=== PATIENT | female | born 1965 | race Caucasian/White ===

== ENCOUNTER → 2017-06-27 | Emergency (ER) | payer OTHER ==
[~2017-06-27] VITALS: Ht 165.1 cm; Wt 109.8 kg
[~2017-06-27] MED LIST: ANALGESIC CREME85 GM TOP; IBUPROFEN200 MG PO; IBUPROFEN800 MG PO; LISINOPRIL-HCT1 EAC1 PO; MELOXICAM15 MG PO; NAPROXEN500 MG PO; NORCO 5-325 TA1 EACH PO; ULTRAM50 MG PO
== END ==
LOC: ED 20:58
DX: A08.4 Viral intestinal infection, unspecified (principal); I10 Essential (primary) hypertension; Z87.891 Personal history of nicotine dependence
CPT/HCPCS: 80053; 85025; 96374; 96375; 99283; J1200; J1885; J2405; J2765; J7030

== ENCOUNTER 2017-11-03 14:04 | Emergency (ER) | payer BC ==
[~2017-11-03] VITALS: Ht 165.1 cm; Wt 108.9 kg
[2017-11-03] MEDS ORDERED: MULTI VITAMIN1 EACH PO (14:14)
[2017-11-03] MEDS ORDERED: ONDANSETRON ODT8 MG PO (16:17)
== END 2017-11-03 18:25 | disposition home or self-care (01) ==
LOC: ED 14:04
DX: K29.70 Gastritis, unspecified, without bleeding (principal); I10 Essential (primary) hypertension; Z87.891 Personal history of nicotine dependence; Z88.5 Allergy status to narcotic agent
CPT/HCPCS: 76705; 80053; 82150; 83690; 85025; 96361; 96374; 96375; 96376; 99284; J1170; J2310; J2405; J7030

== ENCOUNTER 2020-10-22 07:20 | Day surgery (SDC) | payer OTHER ==
[~2020-10-22] VITALS: Ht 165.1 cm; Wt 109.1 kg
[~2020-10-22 07:20] MED LIST changes: +MULTI VITAMIN1 EACH PO; +ONDANSETRON ODT8 MG PO
[2020-10-22] MEDS ORDERED: ESCITALOPRAM OX10 MG PO (07:32)
[2020-10-22] MEDS ORDERED: PROPRANOLOL HCL10 MG PO (07:33)
[2020-10-22] MEDS ORDERED: PERPHENAZINE4 MG PO (07:33)
--- NOTE | 2020-10-22 10:06 | NUR ---
10/22/20 Jose6 Senait Leiva 5123-PATIENT ARRIVED TO PACU ON 6L MASK NONAROUSABLE RR EVEN SHALLOW BREATHING. SR. INCISION SITE TO HEAD CDI NO DRESSING IN PLACE. 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 1004-PATIENT AROUSES TO VERBAL STIMULI OPENING EYES NODS HEAD YES WHEN ASKED IF OK. CLOSES EYES AND FALLS BACK ASLEEP. 6L MASK RR EVEN. ENCOURAGED DEEP BREATHING.
--- NOTE | 2020-10-22 11:28 | NUR ---
1055: PATIENT BACK IN DAY SURGERY ROOM FROM PACU. DENIES PAIN. PATIENT DROWSY. VS CHECKED. SCALP INCISION WNL. NO DRESSING. ICE PACK TO SCALP. IV SITE WNL. SCDs ON. ICE WATER PLACED AT BEDSIDE. PATIENT REQUESTING TO SLEEP. LIGHTS TURNED OFF PER REQUEST. CALL LIGHT WITHIN REACH.
[2020-10-22] MEDS ORDERED: HYDROCODON-ACE1 EA10 PO (11:36)
--- NOTE | 2020-10-22 12:09 | NUR ---
1145: PATIENT AWAKENED FOR VS CHECKED. DENIES PAIN. CONTINUES TO BE DROWSY AND WANTS TO CONTINUE SLEEPING. SCALP INCISION WNL. ICE PACK TO SCALP. IV SITE WNL. CALL LIGHT WITHIN REACH.
--- NOTE | 2020-10-22 12:30 | NUR ---
PATIENT ASSISTED OOB AND TO BATHROOM. GAIT STEADY. VOID WITHOUT DIFFICULTY. GAIT STEADY BACK TO ROOM. SITTING ON SIDE OF BED. PATIENT GIVEN JELLO TO EAT. CALL LIGHT WITHIN REACH.
--- NOTE | 2020-10-22 12:56 | NUR ---
1255-PATIENT AWAKENED FOR VITAL SIGNS DENIES PAIN OR NAUSEA. ATE ALL OF JELLO. PATIENT LAYING ON RIGHT SIDE REPORTS "I JUST WANNA SLEEP". CALL LIGHT WITHIN REACH
--- NOTE | 2020-10-22 13:30 | NUR ---
PT IS GIVEN VERBAL DC INSTRUCTIONS, SHE VERBALIZES UNDERSTANDING. IS CALLED TO COME GET THE PT. QUESTIONS ARE ASKED AND ANSWERED.
--- NOTE | 2020-10-22 13:53 | NUR ---
PAUL 1335: PT IS TAKEN TO PERSONAL VEHICLE VIA WC. SHE IS ABLE TO TRANSFER HERSELF FROM WC TO PERSONAL VEHICLE.
--- NOTE | 2020-10-23 07:16 | OR ---
[facility] [address], [place] [address] Signed DATE OF OPERATION: 10/22/2020 SURGEON: Sai Sterling MD PREOPERATIVE DIAGNOSIS: 2.5 cm subcutaneous parietal scalp mass. POSTOPERATIVE DIAGNOSIS: Epidermal cyst. PROCEDURE: Excision of epidermal, parietal scalp cyst. ESTIMATED BLOOD LOSS: None. INDICATIONS: Leonard is a 55-year-old female asked to see me for a subcutaneous mass over the top of her head almost to the occiput. It is in the midline. She said it has been there for years, but it continued to get larger. It is 2 cm maybe larger. She said it is quite painful and causing her headaches. She gone to her primary care provider. She was then asked to see me to have it removed. In the office, I explained to Leonard this would most likely be an epidermal cyst. I explained to her the nature of the surgery along with the risks including, but not limited to bleeding, infection, scarring, change in contour of the skin as well as recurrent cyst in the same or other locations. She had expressed understanding and wished to proceed. We always do these in the operating room under good lighting with cautery because the scalp bleeds though significantly. She understands it is extremely important to remove the entire cyst wall, otherwise they do recur. DESCRIPTION OF PROCEDURE: I met with Leonard in our preop area. We both identified the cyst and marked that appropriately. After this, she was taken in the operating room and placed in the supine position under general endotracheal tube anesthesia. She was given preoperative antibiotics along with subcutaneous heparin. SCDs were utilized. We used a pillow in a donut to help elevate her head and placed the bed in the reverse Trendelenburg position. She had been prepped and draped in the usual sterile fashion. We then injected local anesthetic around and underneath the lesion. An incision was made over the lesion front to back with our 15 blade knife. We carried this down and around the lesion very carefully with our needle-tip cautery. We used our hemostats to carefully get around Electronically Signed By: SAI STERLING MD 10/23/20 0716 PATIENT NAME: LEONARD RAUSCH OPERATIVE REPORT DATE OF : 69 REPORT #: [id number] PHYSICIAN: SAI STERLING MD PCP: CONCHIS GREENFIELD DO REPORT IS CONFIDENTIAL AND NOT TO BE RELEASED WITHOUT AUTHORIZATION [facility] [address], [place] [address] Signed the cyst wall and the entire cyst was removed en bloc. We then injected some additional local in the operative wound. The wound was irrigated and suctioned out until clear. We closed the dermis with interrupted 5-0 subcuticular Monocryl sutures. The skin edges were reapproximated with a running 5-0 fast absorbing plain gut suture. We left the wound open to air. After this, Leonard was awakened from her anesthesia, extubated in the OR, and taken to recovery room in stable condition. Sai Sterling MD ALB/MODL /[id number] cc: DO Sai Young MD Copies: CONCHIS GREENFIELD ANDREW L MD ~ Electronically Signed By: SAI STERLING MD 10/23/20 0716 PATIENT NAME: LEONARD RAUSCH MARY OPERATIVE REPORT DATE OF : 69 REPORT #: [id number] PHYSICIAN: SAI STERLING MD PCP: CONCHIS GREENFIELD DO REPORT IS CONFIDENTIAL AND NOT TO BE RELEASED WITHOUT AUTHORIZATION
--- NOTE | 2020-10-23 15:18 | PATH ---
[facility] [address] [place], [place] [address] Signed SPECIMEN(S): A SCALP SPECIMEN SOURCE: A. SCALP CLINICAL HISTORY: Excise subcutaneous scalp mass. FINAL PATHOLOGIC DIAGNOSIS: Epidermal scalp cyst, excision: - Pilar (trichilemmal) cyst. NAL:cml:C2NR MICROSCOPIC EXAMINATION: Histologic sections of all submitted blocks are examined by light microscopy. These findings, together with the gross examination, support the pathologic diagnosis. GROSS DESCRIPTION: The specimen, labeled "CT," and designated on the requisition "epidermal scalp cyst," is received in formalin and consists of white-del rio, firm mass (1.8 x 1.5 x 1.3 cm) is serially sectioned to reveal a white to brown-del rio and friable cut surface. Rn Gyn sections are submitted in cassette (A1). AC (under the direct supervision of a pathologist) The Gross Description was prepared using a voice recognition system. The report was reviewed for accuracy; however, sound-alike word errors, addition and/or deletions may occur. If there is any question about this report, please contact Client Services. PERFORMING LABORATORY: The technical component was performed by [email or web address], [address] [place] [id number] ([employer]: Beryl Gannon MD; CLIA# [id number]). Professional [email or web address] [address] [address] (CLIA# [id number]). Diagnostician: Martina Shen MD Pathologist Electronically Signed 10/23/2020 PATIENT NAME: LEONARD RAUSCH PATHOLOGY DATE OF : 69 REPORT #: [id number] PHYSICIAN: [facility] PCP: CONCHIS GREENFIELD DO REPORT IS CONFIDENTIAL AND NOT TO BE RELEASED WITHOUT AUTHORIZATION [address] [place] [address] Signed Copies: ~ PATIENT NAME: LEONARD RAUSCH PATHOLOGY DATE OF : 69 REPORT #: [id number] PHYSICIAN: [facility] PCP: CONCHIS GREENFIELD DO REPORT IS CONFIDENTIAL AND NOT TO BE RELEASED WITHOUT AUTHORIZATION
== END 2020-10-22 13:35 | disposition home or self-care (01) ==
LOC: DS 07:20
PROVIDERS: ATTEND Colon & Rectal Surgery
PROC: 0HB0XZZ Excision of Scalp Skin, External Approach (ICD-10-PCS; principal; 2020-10-22 08:30)
DX: L72.12 Trichodermal cyst (principal); E78.00 Pure hypercholesterolemia, unspecified; G47.33 Obstructive sleep apnea (adult) (pediatric); I10 Essential (primary) hypertension; E66.9 Obesity, unspecified; Z68.41 Body mass index [BMI] 40.0-44.9, adult
CPT/HCPCS: 00300; 88304; J0330; J0690; J1644; J2001; J2250; J2704; J7121

== ENCOUNTER 2021-04-27 15:32 | Emergency (ER) | payer OTHER ==
[~2021-04-27] VITALS: Ht 165.1 cm; Wt 108.9 kg
[~2021-04-27 15:32] MED LIST changes: +ESCITALOPRAM OX10 MG PO; +HYDROCODON-ACE1 EA10 PO; +PERPHENAZINE4 MG PO; +PROPRANOLOL HCL10 MG PO
[2021-04-27] MEDS ORDERED: PERCOCET 5-3251 EACH PO (17:21)
== END 2021-04-27 17:40 | disposition home or self-care (01) ==
LOC: ED 15:32
DX: S16.1XXA Strain of muscle, fascia and tendon at neck level, initial encounter (principal); S20.219A Contusion of unspecified front wall of thorax, initial encounter; V49.9XXA Car occupant (driver) (passenger) injured in unspecified traffic accident, initial encounter; I10 Essential (primary) hypertension; Z87.891 Personal history of nicotine dependence; Z88.5 Allergy status to narcotic agent; Z79.899 Other long term (current) drug therapy
CPT/HCPCS: 70450; 71260; 72125; 74177; 80053; 85025; 99285-25; Q9967

== ENCOUNTER 2021-07-09 15:54 | Inpatient (IN) | payer OTHER ==
[~2021-07-09] VITALS: Ht 165.1 cm; Wt 110.5 kg
[~2021-07-09 15:54] MED LIST changes: +PERCOCET 5-3251 EACH PO
[2021-07-09] MEDS ORDERED: MELOXICAM15 MG PO (16:45)
--- NOTE | 2021-07-09 21:20 | NUR ---
PT ARRIVED TO [facility] VIA STRETCHER AT 2032. SHE MOVED OVER TO BED SBA. PT IS ALERT AND ORIENTED RR IS EVEN AND UNLABORED. PT REPORTS PAIN AT 5/10 BUT STATES IT IS NOT REAL PAIN IT IS "HUNGER PAIN" AND IT WILL NOT STOP RUMBLING. PT ASKS IF THERE IS ANYTHING SHE CAN TAKE FOR IT. PT STATES SHE MORPHINE DID NOT HELP. ADVISED PT THAT IS ALL WE HAVE TO GIVE HER AND IT WILL NOT TAKE HER HUNGER AWAY. ADVISED PT THAT SHE HAS IV FLUIDS INFUSING WHICH WILL HELP KEEP HER HYDRATED. PT DENIES NAUSEA AT THIS TIME. VS TAKEN AND ENTERED. PT ORIENTED TO ROOM AND CALL LIGHT. IV IS INFUSING FINE AND CALL LIGHT IS CLOSE. PT DENIES FURTHER NEEDS. ORAL SWABS AND WARM BLANKET PROVIDED.
--- NOTE | 2021-07-09 22:58 | NUR ---
PT IS RESTING WITH EYES CLOSED, RR IS EVEN AND UNLABORED. IV IS INFUSING FINE AND CALL LIGHT IS CLOSE.
--- NOTE | 2021-07-10 00:20 | NUR ---
ASSISTED PT TO BATHROOM X1 SBA. PT VOIDED AND HAD "LIQUID BM". PT DID OWN PERICARE. BACK TO BED. MEDICATED WITH MORPHINE FOR C/O 6/10 ABD AND HEAD PAIN. PT FCO WELL. CALL LIGHT IN REACH. SIDE RAILS UP X2. PT DENIES FURTHER NEEDS.
--- NOTE | 2021-07-10 00:25 | NUR ---
Patient is trying to rest. Call light is in reach.
--- NOTE | 2021-07-10 01:24 | NUR ---
PT IS RESTING WITH EYES CLOSED, RR IS EVEN AND UNLABORED. CALL LIGHT IS CLOSE AND IV IS INFUSING FINE.
--- NOTE | 2021-07-10 02:26 | NUR ---
PT IS RESTING WITH EYES CLOSED, RR IS EVEN AND UNLABORED. CALL LIGHT IS CLOSE AND BED ALARM IS ON.
--- NOTE | 2021-07-10 03:23 | NUR ---
PT IS RESTING WITH EYES CLOSED, RR IS EVEN AND UNLABORED. CALL LIGHT IS CLOSE AND IV IS INFUSING FINE.
--- NOTE | 2021-07-10 05:07 | NUR ---
PT IS RESTING WITH EYES CLOSED, RR IS EVEN AND UNLABORED. CALL LIGHT IS CLOSE AND IV IS INFUSING FINE.
--- NOTE | 2021-07-10 08:03 | NUR ---
Patient resting in bed, eyes closed, respirations even and non labored. Personal supplies and call light within reach.
--- NOTE | 2021-07-10 10:34 | NUR ---
aPatient resting at this time, eyes closed, respirations even and non labored. Patient has no distress at this time. Call light within reach.
[2021-07-10] MEDS ORDERED: FLUPHENAZINE HCL1 MG PO (10:57)
--- NOTE | 2021-07-10 11:33 | NUR ---
MED REC COMPLETE
--- NOTE | 2021-07-10 13:09 | NUR ---
Patient awake, no ditress. Patient denies nausea and or pain at this time. IV site patent. Patient has no needs at this time.
--- NOTE | 2021-07-10 15:03 | NUR ---
VITALS AND I&OS CHARTED. PATIENT UP TO SHOWER WITH SBA. LINEN CHANGED.
--- NOTE | 2021-07-10 15:40 | NUR ---
Morphine 4mg ivp admin for reports of 5/10 abd pain.
--- NOTE | 2021-07-10 17:00 | NUR ---
Spoke with Mian. States she and spouse live in a 1 story home with 20 steps. There are handrails. She has not had issues getting in and out of home. She works for [employer] and drives. States she is active and denies need for any DME. She does use food stamps. Over income for [employer]. Denies other needs. works, but will assist her if she has any needs.
--- NOTE | 2021-07-10 17:29 | NUR ---
Patient resting in bed, eyes closed, respirations even and non labored. Patient has no needs at this time. Personal supplies and call light within reach.
--- NOTE | 2021-07-10 19:51 | NUR ---
BEDSIDE REPORT FROM ASHLEY RN, PT RESTING IN BED, ONLY REQUEST/COMPLAINT IS SHE WOULD LIKE THE IV SITE MOVED IT IS HARD FOR HER TO SLEEP WITH IV IN LEFT AC, IV SITE IS WNL, BRISK BLOOD RETURN NO REDNESS, DISCUSSED WITH PT THAT THIS RN WOULD ASSESS TO RELOCATE THIS SHIFT, THAT IT WILL BE A LITTLE LATER STAFF IS IN SHIFT CHANGE AT THIS TIME.
--- NOTE | 2021-07-10 20:23 | NUR ---
SBA TO RESTROOM, PT HAD A LIQUID BM IN UNDERWEAR. PROVIDED PANTS AND PT'S CLEAN UNDERWEAR. PT WILL CALL WHEN SHE IS DONE.
--- NOTE | 2021-07-10 20:50 | NUR ---
IN ROOM TO CHANGE PTS BEDDING FROM ACCIDENT. SHE IS NOW WEARING ATTENDS AND IS CLEANED UP. PT HAD LIQUID BMS, URINE AND EMESIS. PT DENIES FURTHER NEEDS. CALL LIGHT IS CLOSE.
--- NOTE | 2021-07-10 22:51 | NUR ---
PT REPORTS PAIN /10, SHE ALSO HAD UNMEASURED EMESIS, ZOFRAN 4MG IV PRN AND MORPHINE 4MG IV PRN. PT ALERT AND ORIENTED, COOPERATIVE WITH CARE. NO OTHER CONCERNS AT THIS TIME. SHE DID HAVE INCONT OF URINE AND STOOL IN BED SHE WAS ATTEMPTING TO GET OUT OF BED. SHE IS HAVING DIARRHEA. SHE REFUSED HER PO HS MEDS SHE FEELS SHE WILL NOT TOLERATE IN LIGHT OF RECENT EMESIS, SHE ALSO SAID THAT SHE HAD NASUEA THIS AM AFTER TAKING PO MEDS. NO OTHER CONCERNS AT THIS TIME
--- NOTE | 2021-07-11 00:59 | NUR ---
ROUNDING PT RESTING IN BED, EYES CLOSED RR EVEN AT 16 BPM, NO DISTRESS NOTED.
--- NOTE | 2021-07-11 04:47 | NUR ---
PT HAS SLEPT WELL OVER SHIFT, SHE HAS NEW IV PLACED TO RIGHT HAND, SHE IS PLEASED WITH THIS PLACED BY [employer]PERATIONS SPECIALIST ARIANA HOYOS. PT HAS REPORTED INCREASE PAIN WITH ORAL INTAKE, SHE REFUSED PO MEDICATIONS AT HS, SHE HAS HAD ONE EMESIS AND ONE DIARRHEA EPISODE THIS SHIFT, ZOFRAN AND MORPHINE ADMINISTERD ONCE PRN THIS SHIFT. PT WAS ADMINISTERED 1L BOLUS OVER 2 HOURS AND INCREASED IVF RATE PER ORDERS AT START OF SHIFT. SHE HAS BEEN COOPERATIVE WITH PLAN OF CARE.
--- NOTE | 2021-07-11 07:35 | NUR ---
Patient in bed resting, respirations even and non labored. Patient has no distress. Personal supplies and call light within reach.
--- NOTE | 2021-07-11 10:18 | NUR ---
Patient declined her morning po medications as she reports "they make me sick to my stomach".
--- NOTE | 2021-07-11 13:53 | NUR ---
Patient sitting up watching tv, no distress. Patient denies nasuea and or pain at this time. Patient fearful of drinking/eating as she reports she immediately got sick the last time she drank fluids. IV site remains patent. Patient denies needs. Personal supplies and call light within reach.
--- NOTE | 2021-07-11 18:37 | NUR ---
Patient voided 100ml since 1344. Dr. Espinal notified; LR bolus for 500ml ordered then cont IV fluids to be increased to 125ml/hr.
--- NOTE | 2021-07-11 20:05 | NUR ---
BEDSIDE REPORT FROM ASHLEY HOYOS, PT RESTING IN BED ALERT AND ORIENTED NO REPORTS OF PAIN OR NAUSEA, SHE AGREES TO TAKE HER SCHEDULED PO MEDICATIONS THIS EVENING. SHE REPORTS NO OTHER CONCERNS OR REQUESTS AT THIS TIME.
--- NOTE | 2021-07-11 22:09 | NUR ---
INTO PT ROOM, SHE IS SLEPPING ON RIGHT SIDE EYES CLOSED SNORING NOTED, PT ALERT TO STAFF AT BEDSIDE, SHE STARTLED AWAKE. SHE REPORTS NO PAIN OR NAUSEA. NO REQUESTS AT THIS TIME, V/S, I/O, HS ASSESSMENT COMPLETE
--- NOTE | 2021-07-12 01:43 | NUR ---
PT CALLED TO REPORT IV PUMP ALARMING. THIS RN INTO PT ROOM, NOTED IVF COMPLETE, NEW LITER OF LR SPIKED FOR ADMINISTRATION. PT RESTING IN BED ON HER LEFT SIDE. SHE HAS BEEN SLEEPING WELL OVER SHIFT.
--- NOTE | 2021-07-12 05:28 | NUR ---
PT HAS SLEPT WELL OVER SHIFT NO N/V/D. TOLERATING CLEAR LIQUID DIET WELL. INDEPENDENT TO BATHROOM VOIDING Q.S.
--- NOTE | 2021-07-12 05:37 | NUR ---
PT REPORTS SHE DID HAVE ONE EPISODE OF NAUSEA SHE REPORTS DO TO BEING ABLE TO TASTE THE IVF
--- NOTE | 2021-07-12 07:28 | NUR ---
Report received from Ute HOYOS. Pt resting in bed with eyes closed, even and unlabored RR. IVF infusing WNL. No needs identified at this time. Call light in reach, will continue plan of care.
--- NOTE | 2021-07-12 08:33 | NUR ---
Scheduled medications administered and assessment complete. Pt sitting at edge of bed finishing clear liquid tray. She reports no pain or nausea at this time. IVF infusing WNL. Void of 900ml.
--- NOTE | 2021-07-12 09:30 | NUR ---
New bag IVF hung infusing WNL. Pt resting in bed watching tv with no needs.
--- NOTE | 2021-07-12 13:45 | NUR ---
VSS and I/Os complete. Pt has no needs at this time, reports no pain or nausea. Calls appropriately.
--- NOTE | 2021-07-12 17:00 | NUR ---
Pt sitting up at edge of bed eating dinner and tolerating full liquid diet at this time. IV is saline locked. Pt on room air. She reports no pain, no nausea. Assessment complete. No further needs, call light in reach
--- NOTE | 2021-07-12 17:34 | NUR ---
VSS and I/Os complete. Pt tolerated dinner at this time.
--- NOTE | 2021-07-12 19:28 | NUR ---
BEDSIDE REPORT FROM SRINI HOYOS, PT RESTING IN BED ALERT AND ORIENTED, SHE REPORTS NO NEEDS AT THIS TIME. SHE IS SMILING AND SAID "I AM GOING TO GET MY DIET ADVANCED TOMORROW" SRINI HOYOS AND THIS RN AGREED, "YES THAT IS THE PLAN LONG NO NAUSEA OR INCREASED PAIN TONIGHT.
--- NOTE | 2021-07-12 21:54 | NUR ---
PT REPORTS FEELING OVER FULL FROM DINNER, ENCOURAGE PT TO AMBULATE IN HALLS IF SHE FEELS UP TO IT. SHE SAID "YES, THAT MIGHT BE GOOD", PT UP TO AMBUTLATE IN HALLS NOW. SHE REPORTS NO NAUSEA OR PAIN. NO OTHER REQUESTS AT THIS TIME.
--- NOTE | 2021-07-12 22:23 | NUR ---
PT AMBULATED MULTIPLE LAPS ON MED/SURG UNIT, TOLERATING ACTIVITY WELL, SHE REPORTS NO PAIN OR NAUSEA AT THIS TIME.
--- NOTE | 2021-07-12 23:38 | NUR ---
ROUNDING..PT UP AMBULATING IN HER ROOM. SHE SAID SHE IS HAVING TROUBLE FINDING THE TRAVEL CHANNEL ON TV. PT ASSISTED BY STAFF. PT HAS NO REPORT OF ABD PAIN OR NAUSEA AT THIS TIME.
--- NOTE | 2021-07-13 04:13 | NUR ---
PT RESTING IN BED RR REGULAR 16 BPM, NO DISTRESS NOTED.
--- NOTE | 2021-07-13 06:56 | NUR ---
MRI FORM FILLED OUT WITH PT, EDUCATION ON WHAT AND WHY THE DOCTOR ORDERED MRI. PT HAPPY TO HACVE MRI IN HOPES OF FINDING OUT WHAT MAY HAVE CAUSED HER PANCREATITIS. V/S, I/O COMPLETE. NO OTHER CONCERNS OR QUESTIONS THIS AM.
--- NOTE | 2021-07-13 07:15 | NUR ---
Report received from Ute HOYOS. Pt NPO for MRCP. Per report no pain or nausea throughout night. Call light in reach, will continue plan of care.
--- NOTE | 2021-07-13 08:25 | NUR ---
Assessment complete and scheduled medications administered. Pt prepared for MRCP. MRI checklist complete. Pt saline locked, on room air, HRR. She states no pain or needs and per report tolerated full liquids until NPO for procedure. VSS, A+O. Pt ambulatory in room independently, calls appropriately.
--- NOTE | 2021-07-13 09:10 | NUR ---
Pt taken to MRI
--- NOTE | 2021-07-13 10:34 | NUR ---
PT NOT IN RM-INFORMED BY M/S STAFF SHE IS AT IMAGING FOR MRI. WILL FOLLOW
--- NOTE | 2021-07-13 12:23 | NUR ---
Discharge teaching provided to patient regarding low fat diet, home care, outpatient followup, verbal and written information given. Pt verbalizes understanding and all questions answered. Marisel Pharmacist in room to discuss med list.
== END 2021-07-13 13:25 | disposition home or self-care (01) | DRG 440 ==
LOC: ED 15:54 → MS 15:56
PROVIDERS: ADMIT Internal Medicine; ATTEND Internal Medicine
DX: K85.00 Idiopathic acute pancreatitis without necrosis or infection (principal); Z20.822 Contact with and (suspected) exposure to COVID-19; F32.A Depression, unspecified; I10 Essential (primary) hypertension; E66.9 Obesity, unspecified; F41.9 Anxiety disorder, unspecified; E78.5 Hyperlipidemia, unspecified; Z68.38 Body mass index [BMI] 38.0-38.9, adult; Z90.89 Acquired absence of other organs; Z98.51 Tubal ligation status; Z79.899 Other long term (current) drug therapy; Z87.891 Personal history of nicotine dependence
CPT/HCPCS: 36415; 74183; 76705; 80048; 80053; 80061; 81001; 82310; 83690; 83735; 84703; 85025; 87088; 96374; 96375; 96376; 99285-25; A9577; C9113; C9803; J1650; J2270; J2405; J7121; U0003

== ENCOUNTER 2022-04-16 10:45 | Emergency (ER) | payer OTHER ==
[~2022-04-16] VITALS: Ht 165.1 cm; Wt 110.2 kg
[~2022-04-16 10:45] MED LIST changes: +FLUPHENAZINE HCL1 MG PO
[2022-04-16] MEDS ORDERED: DIVALPROEX SOD250 MG PO (13:59)
[2022-04-16] MEDS ORDERED: ZITHROMAX250 MG PO (16:00)
== END 2022-04-16 16:13 | disposition home or self-care (01) ==
LOC: ED 10:45
DX: J20.8 Acute bronchitis due to other specified organisms (principal); I10 Essential (primary) hypertension; Z20.822 Contact with and (suspected) exposure to COVID-19; Z87.891 Personal history of nicotine dependence; Z88.5 Allergy status to narcotic agent
CPT/HCPCS: 71045; 87502; 99283-25; U0003

== ENCOUNTER 2024-10-20 01:54 | Emergency (ER) | payer OTHER ==
[~2024-10-20] VITALS: Ht 165.1 cm; Wt 120.5 kg
[~2024-10-20 01:54] MED LIST changes: +CYCLOBENZAPRINE10 MG PO; +DIVALPROEX SOD250 MG PO; +ZITHROMAX250 MG PO
[2024-10-20] MEDS ORDERED: VALACYCLOVIR1000 MG PO (02:22)
[2024-10-20 02:30] VITALS: BP 155/78
[2024-10-20] MEDS ORDERED: VALACYCLOVIR HCL 500 MG TAB PO ONE (02:30)
== END 2024-10-20 02:30 | disposition home or self-care (01) ==
LOC: ED 01:54
DX: B02.9 Zoster without complications (principal); I10 Essential (primary) hypertension; W57.XXXA Bitten or stung by nonvenomous insect and other nonvenomous arthropods, initial encounter; Z79.899 Other long term (current) drug therapy; Z88.5 Allergy status to narcotic agent; Z87.891 Personal history of nicotine dependence
CPT/HCPCS: 99282